=== PATIENT | female | born 1995 | race American Indian/Alaskan Native ===

== ENCOUNTER 2018-12-29 23:05 | Emergency (ER) | payer MEDICAID ==
[~2018-12-29] VITALS: Ht 162.6 cm; Wt 77.0 kg
[~2018-12-29 23:05] MED LIST: MEDR150D9 IM
[2018-12-30] MEDS ORDERED: TETanus/Pertussis (Acell)/Diphther VAC/PF (Tdap-Adult) 0.5ml syringe IM ONE (00:25)
[2018-12-30] MEDS ORDERED: LIDOcaine 1% w/epiNEPHrine 1:200,000 30ml vial IM ONE (00:25)
[2018-12-30 01:22] VITALS: BP 127/83
== END 2018-12-30 01:27 | disposition home or self-care (01) ==
LOC: ER 23:06
DX: S51.012A Laceration without foreign body of left elbow, initial encounter (principal); Z98.890 Other specified postprocedural states; W26.8XXA Contact with other sharp object(s), not elsewhere classified, initial encounter; Y93.89 Activity, other specified; Y92.89 Other specified places as the place of occurrence of the external cause; Y99.0 Civilian activity done for income or pay
CPT/HCPCS: 12002; 90471; 90715; 99283; J3490

== ENCOUNTER 2019-01-10 17:29 | Emergency (ER) | payer MEDICAID ==
[~2019-01-10] VITALS: Ht 162.6 cm; Wt 81.0 kg
[2019-01-10 17:57] VITALS: BP 110/69
== END 2019-01-10 19:05 | disposition home or self-care (01) ==
LOC: ER 17:29
DX: S51.012D Laceration without foreign body of left elbow, subsequent encounter (principal); Z48.02 Encounter for removal of sutures; W26.8XXD Contact with other sharp object(s), not elsewhere classified, subsequent encounter
CPT/HCPCS: 99281